=== PATIENT | male | born 1990 | race Caucasian/White ===

== ENCOUNTER 2017-02-12 19:19 | Inpatient (IN) | payer BC ==
[2017-02-12] MEDS ORDERED: Sodium Chloride 0.9% 1,000 ML IV SCH ×3 (20:00→22:45)
--- NOTE | 2017-02-12 20:39 | EDM.PDOC ---
ED HPI GENERAL MEDICAL PROBLEM - General Chief Complaint: Abdominal Pain Stated Complaint: POSSIBLE APENDIX ISSUE Time Seen by Provider: 02/12/17 19:40 Source of Information: Reports: Patient, Family History Limitations: Reports: No Limitations - History of Present Illness INITIAL COMMENTS - FREE TEXT/NARRATIVE: pt arrived complaining of pain in the rt lower abdoman. he has been sick for 2 days. He did vomit today. He thought he was constipated and did take some laxatives. Onset: Gradual, Other ( last 2 days. ) Duration: Day(s):, Getting Worse Associated Symptoms: Reports: Other ( pt has been chilling but has not had a documented fever. ) Right Lower Abdomen Pain Score (Numeric/FACES): 7 - Related Data Allergies Allergy/AdvReac Type Severity Reaction Status Date / Time No Known Allergies Allergy Verified 02/12/17 20:27 Home Meds: Home Meds NK [No Known Home Meds] 02/12/17 [History] Past Medical History Musculoskeletal History: Reports: Fracture Dermatologic History: Reports: Other (See Below) Other Dermatologic History: inclusion cysts - Infectious Disease History Infectious Disease History: Reports: Chicken Pox Social & Family History - Caffeine Use Caffeine Use: Reports: Soda - Recreational Drug Use Recreational Drug Use: No ED ROS GENERAL - Review of Systems Review Of Systems: See Below Constitutional: Reports: Malaise, Weakness, Decreased Appetite HEENT: Reports: No Symptoms Respiratory: Reports: No Symptoms Cardiovascular: Reports: No Symptoms Endocrine: Reports: No Symptoms GI/Abdominal: Reports: Abdominal Pain, Nausea, Vomiting, Other (pt did vomit once. ) : Reports: No Symptoms Musculoskeletal: Reports: No Symptoms Skin: Reports: No Symptoms ED EXAM, GI/ABD - Physical Exam Exam: See Below Text/Narrative:: pt arrived with pain in the rt lower abdoman. he vomited today. Exam Limited By: No Limitations General Appearance: Alert, Moderate Distress Eyes: Bilateral: Normal Appearance, EOMI Ears: Normal TMs Nose: Normal Inspection Throat/Mouth: Normal Inspection Head: Atraumatic Neck: Normal Inspection Respiratory/Chest: No Respiratory Distress Cardiovascular: Regular Rate, Rhythm GI/Abdominal: Guarding, Rebound (Male) Exam: Deferred Rectal (Males) Exam: Deferred Back Exam: Normal Inspection Extremities: Normal Inspection Neurological: Alert, Oriented, Normal Cognition Psychiatric: Normal Affect Course - Vital Signs Last Recorded V/S: Last Vital Signs Temp 36.6 C 02/12/17 20:25 Pulse 101 H 02/12/17 21:19 Resp 18 02/12/17 21:19 BP 129/86 02/12/17 21:19 Pulse Ox 97 02/12/17 21:19 - Orders/Labs/Meds Orders: Active Orders 24 hr Category Date Time Status Abdomen Pelvis w Cont [CT] Stat Exams 02/12/17 20:33 Taken UA W/MICROSCOPIC [URIN] Urgent Lab 02/12/17 19:54 Uncollected Iopamidol [Isovue-300 (61%)] Med 02/12/17 20:48 Active 130 ml IV . DIRECTED PRN Sodium Chloride 0.9% [Normal Saline] 1,000 ml Med 02/12/17 20:00 Active IV ASDIRECTED Sodium Chloride 0.9% [Normal Saline] 1,000 ml Med 02/12/17 22:00 Active IV ASDIRECTED Sodium Chloride 0.9% [Normal Saline] 80 ml Med 02/12/17 21:00 Active IV ASDIRECTED Medication Orders Sodium Chloride (Normal Saline) 1,000 mls @ 999 mls/hr IV ASDIRECTED KADEN Last Admin: 02/12/17 20:44 Dose: 999 mls/hr Sodium Chloride (Normal Saline) 80 mls @ 3.5 mls/sec IV ASDIRECTED KADEN Last Admin: 02/12/17 21:12 Dose: 3.5 mls/sec Sodium Chloride (Normal Saline) 1,000 mls @ 999 mls/hr IV ASDIRECTED KADEN Iopamidol (Isovue-300 (61%)) 130 ml IV . DIRECTED PRN PRN Reason: RADIOLOGY EXAM Stop: 02/13/17 20:49 Last Admin: 02/12/17 21:12 Dose: 130 ml Labs: Laboratory Tests 02/12/17 02/12/17 02/12/17 Range/Units 20:02 20:02 20:02 WBC 11.6 H (4.5-11.0) K/uL RBC 5.31 (4.30-5.90) M/uL Hgb 14.8 (12.0-15.0) g/dL Hct 44.0 (40.0-54.0) % MCV 83 (80-98) fL MCH 28 (27-31) pg MCHC 34 (32-36) % Plt Count 353 (150-400) K/uL Neut % (Auto) 80 H (36-66) % Lymph % (Auto) 7 L (24-44) % [place] % (Auto) 10 H (2-6) % Eos % (Auto) 1 L (2-4) % Baso % (Auto) 1 (0-1) % Sodium 138 L (140-148) mmol/L Potassium 4.0 (3.6-5.2) mmol/L Chloride 99 L (100-108) mmol/L Carbon Dioxide 27 (21-32) mmol/L Anion Gap 16.0 H (5.0-14.0) mmol/L BUN 15 (7-18) mg/dL Creatinine 1.3 (0.8-1.3) mg/dL Est Cr Clr Drug Dosing 96.17 mL/min Estimated GFR (MDRD) > 60 (>60) Glucose 118 H (74-106) mg/dL Calcium 9.2 (8.5-10.1) mg/dL Total Bilirubin 0.8 (0.2-1.0) mg/dL AST 30 (15-37) U/L ALT 29 (12-78) U/L Alkaline Phosphatase 77 (46-116) U/L Creatine Kinase 89 (39-308) U/L C-Reactive Protein (0.0-0.3) mg/dL Total Protein 8.2 (6.4-8.2) g/dL Albumin 4.2 (3.4-5.0) g/dL Globulin 4.0 H (2.3-3.5) g/dL Albumin/Globulin Ratio 1.1 L (1.2-2.2) /03/24 Range/Units 20:02 WBC (4.5-11.0) K/uL RBC (4.30-5.90) M/uL Hgb (12.0-15.0) g/dL Hct (40.0-54.0) % MCV (80-98) fL MCH (27-31) pg MCHC (32-36) % Plt Count (150-400) K/uL Neut % (Auto) (36-66) % Lymph % (Auto) (24-44) % [place] % (Auto) (2-6) % Eos % (Auto) (2-4) % Baso % (Auto) (0-1) % Sodium (140-148) mmol/L Potassium (3.6-5.2) mmol/L Chloride (100-108) mmol/L Carbon Dioxide (21-32) mmol/L Anion Gap (5.0-14.0) mmol/L BUN (7-18) mg/dL Creatinine (0.8-1.3) mg/dL Est Cr Clr Drug Dosing mL/min Estimated GFR (MDRD) (>60) Glucose (74-106) mg/dL Calcium (8.5-10.1) mg/dL Total Bilirubin (0.2-1.0) mg/dL AST (15-37) U/L ALT (12-78) U/L Alkaline Phosphatase (46-116) U/L Creatine Kinase (39-308) U/L C-Reactive Protein 7.82 H (0.0-0.3) mg/dL Total Protein (6.4-8.2) g/dL Albumin (3.4-5.0) g/dL Globulin (2.3-3.5) g/dL Albumin/Globulin Ratio (1.2-2.2) Meds: Medications Generic Name Dose Route Start Last Admin Trade Name Karen PRN Reason Stop Dose Admin Sodium Chloride 1,000 mls @ 999 mls/hr 02/12/17 20:00 02/12/17 20:44 Normal Saline IV 999 mls/hr ASDIRECTED KADEN Administration Sodium Chloride 80 mls @ 3.5 mls/sec 02/12/17 21:00 02/12/17 21:12 Normal Saline IV 3.5 mls/sec ASDIRECTED KADEN Administration Sodium Chloride 1,000 mls @ 999 mls/hr 02/12/17 22:00 Normal Saline IV ASDIRECTED KADEN Iopamidol 130 ml 02/12/17 20:48 02/12/17 21:12 Isovue-300 (61%) IV 02/13/17 20:49 130 ml . DIRECTED PRN Administration RADIOLOGY EXAM - Re-Assessments/Exams Free Text/Narrative Re-Assessment/Exam: 02/12/17 20:39 crp is very elevated. Wbc is elevated. will proceed with a cat scan. 02/12/17 22:01 cat scan showed a acute appendicitis. Dr Hinds wants antibiotics given and will do surgery at 6 am. Departure - Departure Time of Disposition: 20:40 Disposition: Admitted As Inpatient 68 Condition: Fair Clinical Impression: Acute appendicitis, Dehydration - Discharge Information Referrals: Khang Styles MD [Primary Care Provider] - Forms: ED Department Discharge Care Plan Goals: admit to Dr Hinds. - My Orders Last 24 Hours: My Active Orders 02/12/17 19:54 UA W/MICROSCOPIC [URIN] Urgent 02/12/17 20:00 Sodium Chloride 0.9% [Normal Saline] 1,000 ml IV ASDIRECTED 02/12/17 20:33 Abdomen Pelvis w Cont [CT] Stat 02/12/17 20:48 Iopamidol [Isovue-300 (61%)] 130 ml IV . DIRECTED PRN 02/12/17 21:00 Sodium Chloride 0.9% [Normal Saline] 80 ml IV ASDIRECTED 02/12/17 22:00 Sodium Chloride 0.9% [Normal Saline] 1,000 ml IV ASDIRECTED - Assessment/Plan Last 24 Hours: My Active Orders 02/12/17 19:54 UA W/MICROSCOPIC [URIN] Urgent 02/12/17 20:00 Sodium Chloride 0.9% [Normal Saline] 1,000 ml IV ASDIRECTED 02/12/17 20:33 Abdomen Pelvis w Cont [CT] Stat 02/12/17 20:48 Iopamidol [Isovue-300 (61%)] 130 ml IV . DIRECTED PRN 02/12/17 21:00 Sodium Chloride 0.9% [Normal Saline] 80 ml IV ASDIRECTED 02/12/17 22:00 Sodium Chloride 0.9% [Normal Saline] 1,000 ml IV ASDIRECTED
[2017-02-12] MEDS ORDERED: Iopamidol 612 MG/ML 150 ML Bottle IV PRN (20:48)
[2017-02-12] MEDS ORDERED: Sodium Chloride 0.9% 80 ML IV SCH (21:00)
[2017-02-12] MEDS ORDERED: Naloxone 0.4 MG/ML SDV IVPUSH PRN (22:36)
[2017-02-12] MEDS ORDERED: HYDROmorphone/Normal Saline 15 MG/30 ML PCA IV PRN (22:36)
[2017-02-12] MEDS: Ampicillin/Sulbactam Na 3 GM in Sodium Chloride 0.9% 100 ML IV SCH (22:55)
[2017-02-12] MEDS ORDERED: Sodium Chloride 0.9% 50 ML ONE (23:44)
[2017-02-13] MEDS: Dextrose 5%-Lactated Ringers 1,000 ML IV SCH ×4 (00:13→19:46)
[2017-02-13] MEDS: Ampicillin/Sulbactam Na 3 GM in Sodium Chloride 0.9% 100 ML IV SCH ×4 (04:18→22:19)
[2017-02-13] MEDS ORDERED: Bupivacaine 0.5%/EPINEPHrine 1:200,000 50 ML MDV ONE (05:44)
[2017-02-13] MEDS ORDERED: Neostigmine Methylsulfate 1 MG/ML 5 ML Syringe ONE (05:46)
[2017-02-13] MEDS ORDERED: Ondansetron 4 MG/2 ML SDV ONE (05:46)
[2017-02-13] MEDS ORDERED: Succinylcholine/Normal Saline 200 MG/10 ML Syringe ONE (05:46)
[2017-02-13] MEDS ORDERED: fentaNYL 250 MCG/5 ML SDV ONE (05:46)
[2017-02-13] MEDS ORDERED: Rocuronium 50 MG/5 ML Vial ONE ×2 (05:46→07:22)
[2017-02-13] MEDS ORDERED: Propofol 200 MG/20 ML SDV ONE (05:46)
[2017-02-13] MEDS ORDERED: Dexamethasone 4 MG/ML SDV ONE (05:46)
[2017-02-13] MEDS ORDERED: fentaNYL 100 MCG/2 ML SDV ONE (07:04)
[2017-02-13] MEDS ORDERED: Meropenem 500 MG SDV ONE (07:32)
[2017-02-13] MEDS: fentaNYL 25 MCG/HR Transdermal Patch TRDERM SCH (07:56)
[2017-02-13] MEDS ORDERED: hydrOXYzine HCl 100 MG/2 ML SDV IM PRN (09:37)
[2017-02-13] MEDS ORDERED: Cyclobenzaprine 10 MG Tab PO PRN (09:38)
[2017-02-13] MEDS: Aztreonam/Dextrose-Water 1 GM in Premix Bag 1 BAG IV SCH ×2 (14:40→21:31)
[2017-02-13] MEDS: FENTANYL PATCH CHECK TOP SCH (21:10)
[2017-02-14] MEDS: Ampicillin/Sulbactam Na 3 GM in Sodium Chloride 0.9% 100 ML IV SCH ×4 (03:23→21:35)
[2017-02-14] MEDS: HYDROmorphone/Normal Saline 15 MG/30 ML PCA IV PRN (04:43)
[2017-02-14] MEDS: Aztreonam/Dextrose-Water 1 GM in Premix Bag 1 BAG IV SCH ×3 (06:45→22:25)
--- NOTE | 2017-02-14 08:15 | PN ---
DATE OF SERVICE: 02/14/2017 SUBJECTIVE: Ortiz is postop day #1. He states his pain is controlled. He has been pain is controlled. Vital signs have been stable. Temp max of 99.6. OBJECTIVE: GENERAL: Ortiz Garcia is a 26-year-old male. Alert and orientated. VITAL SIGNS: TPR; 99.6, 97, 18, blood pressure 113/72. HEENT: Negative. NECK: Supple. HEART: Regular rate and rhythm. LUNGS: Clear. ABDOMEN: Dressings dry and intact. Abdominal binder is on. EXTREMITIES: Without peripheral edema. ASSESSMENT: Laparoscopic turned to laparotomy for partial cecectomy with removal of appendix and drainage of periappendiceal abscess for perforated appendix with severe retroperitoneal abscess, chronic inflammation, and pericolonic abscess. Date of surgery, 02/13/2017. PLAN: Continue n.p.o. with ice chips only. Schedule and have consent signed for delayed primary closure, IV/local sedation, 02/15/2017. N.p.o. after midnight. Tee Hinds M.D. will evaluate p.r.n. or in a.m. Dalia Francois PA-C /[id number]
[2017-02-14] MEDS: FENTANYL PATCH CHECK TOP SCH ×2 (08:20→20:56)
[2017-02-14] MEDS ORDERED: FENTANYL PATCH CHECK TOP SCH (09:00)
[2017-02-14] MEDS: Dextrose 5%-Lactated Ringers 1,000 ML IV SCH ×2 (12:35→20:22)
[2017-02-14] MEDS: Ondansetron 4 MG/2 ML SDV IVPUSH PRN (12:50)
[2017-02-14] MEDS ORDERED: Tamsulosin 0.4 MG Cap.ER PO ONE (15:30)
[2017-02-14] MEDS: Tamsulosin 0.4 MG Cap.ER PO SCH (20:57)
[2017-02-15] MEDS ORDERED: Acetaminophen 1,000 MG in Premix Bag 1 BAG IV ONE (02:27)
[2017-02-15] MEDS: Ampicillin/Sulbactam Na 3 GM in Sodium Chloride 0.9% 100 ML IV SCH ×4 (04:06→22:15)
[2017-02-15] MEDS: Dextrose 5%-Lactated Ringers 1,000 ML IV SCH ×3 (04:27→19:24)
[2017-02-15] MEDS: Aztreonam/Dextrose-Water 1 GM in Premix Bag 1 BAG IV SCH ×3 (05:27→21:35)
[2017-02-15] MEDS ORDERED: Meropenem 500 MG SDV ONE (06:47)
[2017-02-15] MEDS ORDERED: Lidocaine 1% with EPINEPHrine 1:100,000 50 ML MDV ONE (06:47)
[2017-02-15] MEDS ORDERED: Bupivacaine 0.5% 50 ML MDV ONE (06:47)
[2017-02-15] MEDS ORDERED: Midazolam 1 MG/ML 2 ML SDV ONE (06:52)
[2017-02-15] MEDS ORDERED: fentaNYL 100 MCG/2 ML SDV ONE (06:52)
[2017-02-15] MEDS ORDERED: Propofol 200 MG/20 ML SDV ONE ×2 (06:52→07:29)
[2017-02-15] MEDS: FENTANYL PATCH CHECK TOP SCH ×2 (08:46→21:54)
[2017-02-15] MEDS ORDERED: Docusate Sodium 100 MG Cap PO SCH (10:00)
[2017-02-15] MEDS ORDERED: Acetaminophen 325 MG Tab PO SCH (10:00)
[2017-02-15] MEDS: Bisacodyl 5 MG Tab PO SCH ×2 (10:06→21:35)
[2017-02-15] MEDS: Docusate Sodium Liquid 100 MG/10 ML UD Cup PO SCH ×2 (10:13→21:35)
[2017-02-15] MEDS: Acetaminophen Soln 650 MG/20.3 ML UD Cup PO SCH ×3 (10:14→21:35)
[2017-02-15] MEDS ORDERED: Docusate Sodium Liquid 100 MG/10 ML UD Cup PO SCH (10:15)
--- NOTE | 2017-02-15 11:33 | CR ---
Chest 2V INDICATION: postop fever FINDINGS: Normal heart size. Slight blunting of the costophrenic angles. No focal infiltrate. Chest otherwise negative.
[2017-02-15] MEDS: Ondansetron 4 MG/2 ML SDV IVPUSH PRN ×2 (12:30→21:45)
[2017-02-15] MEDS: HYDROmorphone/Normal Saline 15 MG/30 ML PCA IV PRN (17:51)
[2017-02-15] MEDS: Tamsulosin 0.4 MG Cap.ER PO SCH (21:37)
[2017-02-16] MEDS: Acetaminophen Soln 650 MG/20.3 ML UD Cup PO SCH ×2 (04:23→09:54)
[2017-02-16] MEDS: Ampicillin/Sulbactam Na 3 GM in Sodium Chloride 0.9% 100 ML IV SCH ×4 (04:23→22:09)
[2017-02-16] MEDS: Aztreonam/Dextrose-Water 1 GM in Premix Bag 1 BAG IV SCH ×3 (05:49→21:23)
[2017-02-16] MEDS: fentaNYL 25 MCG/HR Transdermal Patch TRDERM SCH (08:16)
[2017-02-16] MEDS: Docusate Sodium Liquid 100 MG/10 ML UD Cup PO SCH ×2 (08:17→21:21)
[2017-02-16] MEDS: Bisacodyl 5 MG Tab PO SCH ×2 (08:18→21:21)
[2017-02-16] MEDS: FENTANYL PATCH CHECK TOP SCH ×2 (08:18→21:23)
[2017-02-16] MEDS ORDERED: Magnesium Citrate Solution 296 ML Bottle PO ONE (09:00)
--- NOTE | 2017-02-16 09:26 | PN ---
DATE OF SERVICE: 02/16/2017 SUBJECTIVE: Ortiz had delayed primary closure. His pain is controlled. He has been up ambulating. Temperature max in the past 24 hours was 99.8. REVIEW OF SYSTEMS: Remainder of review of systems is negative for any pertinent positives and negatives. OBJECTIVE: GENERAL: Ortiz Garcia is a 26-year-old male. VITAL SIGNS: TPR 99.2, 86, 16, and blood pressure 126/74. HEENT: Negative. NECK: Supple. HEART: Regular rate and rhythm. LUNGS: Clear. ABDOMEN: Dressings are dry and intact. Abdominal binder is on. EXTREMITIES: Without peripheral edema. ASSESSMENT: 1. Laparoscopic turned to laparotomy for partial cystectomy with removal of appendix and drainage of periappendiceal abscess for perforated appendix with severe retroperitoneal abscess, chronic inflammation and pericolonic abscess. Date of surgery 02/13/2017. 2. Delayed primary closure, 02/15/2017. PLAN: Discontinue JOIST SETTER, continuous pulse ox, one bottle of magnesium citrate p.o. today, dressing off, may shower. Leave the occlusive dressing over that stapled incision. Hycet and Lortab elixirs 15 mL q.4 hours p.r.n. pain. We will evaluate p.r.n. or in a.m. Dalia Francois PA-C /[id number]
[2017-02-16] MEDS: Acetaminophen/HYDROcodone 108-2.5 MG/5 ML Soln 15 ML UD Cup PO PRN ×2 (13:01→22:49)
[2017-02-16] MEDS: Dextrose 5%-Lactated Ringers 1,000 ML IV SCH (19:03)
[2017-02-16] MEDS: Tamsulosin 0.4 MG Cap.ER PO SCH (21:22)
[2017-02-17] MEDS: Ampicillin/Sulbactam Na 3 GM in Sodium Chloride 0.9% 100 ML IV SCH (03:16)
[2017-02-17] MEDS: Acetaminophen/HYDROcodone 108-2.5 MG/5 ML Soln 15 ML UD Cup PO PRN ×2 (03:16→07:31)
[2017-02-17] MEDS: Aztreonam/Dextrose-Water 1 GM in Premix Bag 1 BAG IV SCH (05:31)
[2017-02-17 07:17] VITALS: BP 127/78
[2017-02-17] MEDS: FENTANYL PATCH CHECK TOP SCH (08:36)
--- NOTE | 2017-02-17 08:38 | PN ---
DATE OF SERVICE: 02/15/2017 The patient runs some temperatures up to 102 range. He does not feel ill with these. Despite his pulmonary problems, chest x-ray is not showing any obvious infiltrates, and perhaps, at most, some very moderate atelectasis. The temperature is down this morning and we will proceed with delayed primary closure of abdominal incision. Otherwise, begin full liquid diet, will put him on some scheduled Tylenol, and will begin some stool stimulation with Dulcolax oral tablets, along with Colace stool softener. Continue with present antibiotics. The patient retained urine yesterday. He had a Mcgovern catheter reinserted. The Flomax was started, and we will try getting his bladder catheter out tomorrow morning. Tee Hinds MD /[id number]
[2017-02-17] MEDS: Bisacodyl 5 MG Tab PO SCH (08:52)
[2017-02-17] MEDS: Docusate Sodium Liquid 100 MG/10 ML UD Cup PO SCH (08:52)
[2017-02-17] MEDS ORDERED: Amoxicillin/Clavulanate K 600-42.9 MG/5 ML Susp 125 ML Bottle PO SCH (09:00)
--- NOTE | 2017-02-18 04:41 | DISCH ---
ADMISSION DIAGNOSES: Acute appendicitis and dehydration. DISCHARGE DIAGNOSES: 1. Laparoscopic turned to laparotomy for partial cecectomy with removal of appendix and drainage of periappendiceal abscess for perforated appendix with severe retroperitoneal abscess, chronic inflammation and pericolonic abscess. Date of surgery 02/13/2017. 2. Delayed primary closure, 02/15/2017. HISTORY: Markie Garcia is a 26-year-old male presented to the emergency room with abdominal pain and dehydration. He had been having abdominal pain right lower quadrant for 2 days. After preoperative evaluation and discussion of possible risks and possible complications, he wished to proceed with surgical procedure. HOSPITAL COURSE: Markie had his surgery on 02/13/2017 with a delayed primary closure on 02/15/2017. He had no operative complications. He was treated with IV antibiotics and changed from Dilaudid [employer] to oral pain medication. He was started on a full liquid diet and was given some bowel stimulation on 02/16/2017. Markie was able to be discharged to home on 02/17/2017 with no complication. Activity was good. He tolerated a regular diet. Pain was controlled and vital signs were stable. PHYSICAL EXAMINATION: GENERAL: Markie Garcia is a 26-year-old male. VITAL SIGNS: Height 6 feet and weight is 195 pounds. TPR is 97.6, 72, 18, and blood pressure 127/78. HEENT: Negative. NECK: Supple. HEART: Regular rate and rhythm. LUNGS: Clear. ABDOMEN: Dressings dry and intact. Abdominal binder is on. EXTREMITIES: Without peripheral edema. DISPOSITION: Discharged to home. CONDITION: Stable and improving. FOLLOWUP APPOINTMENT: With Dalia Francois PA-C, on 02/25/2017 at 10:15 a.m. MEDICATIONS: 1. Acetaminophen/hydrocodone 108-2.5 mg/5 mL, 15 mL orally q.4 hours p.r.n. pain, 473 mL given. 2. Augmentin 400 mg per 5 mL suspension to take 10.49 mL b.i.d. for 5 days. 3. Fentanyl (Duragesic) patch 25 mcg was replaced on 02/17/2017. He is to remove the patch on 02/21/2017. DIET AFTER DISCHARGE: Usual diet as tolerated. Drink 8 to 10 glasses of water a day. ACTIVITY: No lifting greater than 10 pounds for 6 weeks. DISCHARGE INSTRUCTIONS: Driving, do not drive while on pain medication. Shower/bathing, may shower. Notify provider of fever, increased pain, nausea, or vomiting. Keep site clean and dry. Wear abdominal binder for 6 weeks, and then as tolerated. SPECIAL INSTRUCTIONS: Use incentive spirometer 10 times every hour while awake.
--- NOTE | 2017-02-21 10:56 | OR ---
DATE OF PROCEDURE: 02/13/2017 PREOPERATIVE DIAGNOSIS: Acute appendicitis. POSTOPERATIVE DIAGNOSES: 1. Perforated appendicitis with severe retroperitoneal acute and chronic inflammation. 2. Pericolonic abscess. OPERATIVE PROCEDURES: Laparoscopy converted to open laparotomy with; 1. Partial cecectomy with removal of adherent appendix (28730). 2. Drainage of periappendiceal abscess (40719). ANESTHESIA: General. INDICATION FOR PROCEDURE: This is a 26-year-old male presenting with an acute appendicitis. The plan is to proceed with a laparoscopy, laparotomy if necessary, and appendectomy and drainage of any abscess that might be present. Potential risks of the procedure including bleeding, infection, leaks from GI tract closures, as well as possible cardiopulmonary, septic, or hemorrhagic complications leading to were all discussed, and the patient wishes to proceed. DETAILS OF PROCEDURE: The patient was taken to the operating room and placed in a supine position. After general endotracheal anesthesia was induced, a Mcgovern catheter was inserted, and the abdomen was prepped and draped. Three fingerbreadths superior and to the left of the umbilicus, a transverse incision was made. The peritoneal cavity entered under direct vision with an Optiview trocar, peritoneal cavity was inflated to 15 mmHg pressure with CO2, and the laparoscope reinserted. No underlying trocar insertion site injuries were seen. Following this, a 12-mm trocar was placed in the left lower quadrant and right upper quadrant pain. The cecum was then identified and appendicitis was noted to be associated with periappendiceal and pericolonic abscess. The abscess cavity continued up along the right colic gutter for around 10 cm. Of note, the area of inflammation and necrosis from the appendectomy had encroached onto the cecum, which therefore required partial cecectomy in addition to the appendectomy. The cecum was then divided at that point after the underlying mesentery was freed up using a Harmonic scalpel. The abscess was evacuated at this point and cultures obtained. As one began to dissect downward on the appendix, it became evident that this was curving down underneath the area of the ileocecal valve, and there appeared to be extremely dense inflammation. This was coursing into the right ureter as well. Given those 2 findings, a decision was made to proceed to convert to an open procedure. The trocars were removed and the peritoneal cavity deflated. A right lower quadrant incision was then made and carried down through the skin and subcutaneous tissue and some of the rectus muscle did need to be divided in order to obtain satisfactory exposure. More laterally, the musculature was spread. The patient was noted to have extremely dense, both acute and chronic inflammation along the appendix posterior to the area of the ileocecal valve. This was eventually dissected free, and the right ureter was then identified underneath that plane of dissection and it was found to be intact. The appendix was then mobilized upward, and the remaining mesenteric attachments divided with Harmonic scalpel along with mesenteric maria c. At that point, no further problems were noted. The cecal closure appeared to be intact. The Velasquez-Morales drain was taken through a stab wound in the right mid abdomen, draped across the area of the abscess along the right colic gutter and from there into the pelvis. The incision was then closed with 2 layers of #2 Vicryl stitch. The skin and subcutaneous tissues were obviously at quite high risk for a wound infection, therefore, packed open with Iodoform gauze for a planned delayed primary closure in 48 hours. The patient was taken to the recovery room in satisfactory condition. There were no other complications. Tee Hinds MD /[id number]
--- NOTE | 2017-02-21 15:41 | OR ---
DATE OF PROCEDURE: 02/15/2017 PREOPERATIVE DIAGNOSIS: Open abdominal incision. POSTOPERATIVE DIAGNOSIS: Open abdominal incision. PROCEDURE: Delayed primary closure of open abdominal incision. ANESTHESIA: Local plus IV sedation. INDICATION FOR PROCEDURE: This is a 26-year-old status post an open appendectomy and cecectomy along with drainage of pericolonic abscess 48 hours ago. The skin and subcutaneous tissue were left open as the patient was felt to be high risk for wound infection. Plan is to proceed with a delayed primary closure at this time. Potential risks including bleeding and infection were reviewed, and the patient wishes to proceed. DESCRIPTION OF PROCEDURE: The patient was taken to the operating room and placed in a supine position. After IV sedation was administered, the operative dressing was taken down. The wound was inspected and found to be clean. The incision was then prepped and draped, anesthetized with 1% lidocaine mixed with Marcaine, and irrigated with meropenem-containing saline solution. A 10-Hebrew round Velasquez-Morales drain was then placed through a stab wound lateral to the incision and sutured with a 3-0 Vicryl stitch. The incision was then closed with a layer of 3-0 and 4-0 Vicryl stitch deep and then maria c for the skin. Dressing was applied. The patient was taken to the recovery room in satisfactory condition. There were no evident complications. Tee Hinds MD /[id number]
== END 2017-02-17 09:40 | disposition home or self-care (01) | DRG 221 ==
LOC: JP.ED 19:19 → JP.MS 22:31
PROVIDERS: ADMIT Surgery; ATTEND Physician Assistant Medical
PROC: 0DTJ0ZZ Resection of Appendix, Open Approach (ICD-10-PCS; principal; 2017-02-12)
PROC: 0DBH0ZZ Excision of Cecum, Open Approach (ICD-10-PCS; 2017-02-12)
PROC: 0DJD4ZZ Inspection of Lower Intestinal Tract, Percutaneous Endoscopic Approach (ICD-10-PCS; 2017-02-12)
DX: K35.3 Acute appendicitis with localized peritonitis (principal); E86.0 Dehydration; K63.0 Abscess of intestine; R50.82 Postprocedural fever
CPT/HCPCS: 36415; 71020; 71020-26; 74177; 80053; 81001; 82550; 85025; 86140; 87070; 87075; 87205; 88304; 94762; 96360; 96361; 99285-25; A9270-GY; J0131; J0295; J1100; J1170; J2185; J2250; J2405; J2704; J3010; J3490; J7030; J7040; J7042; J7050; S0073